=== PATIENT | male | born 1970 | race Caucasian/White ===

== ENCOUNTER 2025-03-27 10:46 | Outpatient (CLI) | payer OTHER ==
[~2025-03-27 10:46] MED LIST: NO HOME MEDS
--- NOTE | 2025-03-27 12:10 | RADIOLOGY REPORT ---
EXAM: CT CT PELVIS W/ ORAL CONTRAST DATE OF SERVICE: 03/27/2025 10:52 AM ORDERING PHYSICIAN: FEDE VALLE REASON FOR EXAM: RIGHT INGUINAL HERNIA, ORAL CONTRAST ONLY TECHNIQUE: Serial axial images were performed through the abdomen and pelvis following oral contrast administration. COMPARISON: None FINDINGS: Right inguinal hernia contains a loop of small bowel. There is no evidence of bowel obstruction or bowel wall thickening. Urinary bladder is smooth walled. Prostate gland normal in size. No enlarged lymph nodes. No free fluid. Tiny sigmoid diverticuli without signs of diverticulitis IMPRESSION: 1. Right inguinal hernia contains a loop of small bowel without evidence of strangulation or obstruction. The hernia neck is roughly 3 cm Dose lowering technique was utilized. CTDI 27 mGy. DLP 1070 mGy cm
== END 2025-03-27 23:59 | disposition home or self-care (01) ==
LOC: RAD 10:46
PROVIDERS: ATTEND Surgery
DX: K40.90 Unilateral inguinal hernia, without obstruction or gangrene, not specified as recurrent (principal)
CPT/HCPCS: 72192